=== PATIENT | female | born 1950 | race Caucasian/White ===

== ENCOUNTER 2016-07-18 09:10 | Observation (INO) | payer MEDICARE, OTHER ==
--- NOTE | ~2016-07-18 | CN ---
Consultation Report [facility] [address] [place]. [address] NAME: JOSE CORONADO : 50 STATUS : ADM IN PAT#: [id number] AGE: 65 ADM/REG DATE : 07/18/16 MR#: [id number] REPORT SERV DATE: 07/18/16 DICTATED BY: RU KNIGHT DATE: 07/18/16 REPORT STATUS : Draft TRANSCRIBED BY: MODL DATE: 07/18/16 ELECTROPHYSIOLOGY CONSULTATION DATE OF CONSULTATION: INDICATIONS: Recurrent atrial flutter. HISTORY OF PRESENT ILLNESS: Jose Coronado is a 65-year-old female who was admitted from the office today by Dr. Serrano with recurrent atrial flutter with RVR. She reports she was fairly unaware that she was out of rhythm. She had a recent KISHORE cardioversion, has been on Eliquis for about two weeks. Since then, she reports compliance with her Eliquis. She continues to smoke cigarettes. She has COPD and exertional shortness of breath. No complaints of angina. She has known coronary artery disease. No syncope or presyncope and no sense of palpitations. PAST MEDICAL HISTORY: Coronary artery disease, previous PCI, previous CAB, COPD, ongoing smoking, previous inferior NE, mixed hyperlipidemia, diabetes, MARY JANE, atrial flutter. MEDICATIONS: Listed in the [facility] form. ALLERGIES: NONE KNOWN. SOCIAL HISTORY: Ongoing smoking. FAMILY HISTORY: Reviewed. Notable for cancer, hypertension, and coronary artery disease. REVIEW OF SYSTEMS: As per the HPI. Otherwise, all other review of systems negative. PHYSICAL EXAMINATION: VITAL SIGNS: Heart rate 120 to 130 beats per minute, respiratory rate 14, the patient is afebrile, weight this morning 234 pounds. GENERAL: Appears stated age, no distress. EYES: Sclerae anicteric, no arcus senilis. MOUTH: Oral mucosa moist, lips acyanotic. NECK: Jugular venous pressure normal, no carotid bruits. LUNGS: Diffusely diminished. CARDIAC: Irregular rhythm, tachycardiac. ABDOMEN: Soft, nondistended, nontender. EXTREMITIES: Have mild edema. SKIN: Warm and dry. NEURO/PSYCH: Alert and oriented, nonfocal, mood appropriate. IMAGING: Electrocardiogram, atrial flutter. Consultation Report [facility] [address] [place]. [address] NAME: JOSE CORONADO : 50 STATUS : ADM IN PAT#: [id number] AGE: 65 ADM/REG DATE : 07/18/16 MR#: [id number] REPORT SERV DATE: 07/18/16 DICTATED BY: RU KNIGHT DATE: 07/18/16 REPORT STATUS : Draft TRANSCRIBED BY: MADINA DATE: 07/18/16 LABORATORY DATA: Pending. IMPRESSION: 1. Recurrent atrial fibrillation with rapid ventricular response. 2. Coronary artery disease, previous bypass grafting, previous PCI. 3. Obesity. 4. Chronic obstructive pulmonary disease. 5. Ongoing smoking. 6. Obstructive sleep apnea. 7. Diabetes. RECOMMENDATIONS: Discussed with the patient, options of antiarrhythmic drug versus ablation. I have discussed the pros and cons of both approaches. Addressed the rationale, logistics, and risk of EP study and ablation. Addressed risks to include but not limited to bleeding, infection, vascular complications, myocardial infarction, stroke, cardiac perforation, increased risk of vascular complications related to the patient's body habitus. The patient had breakfast this morning. She is on Eliquis and has diabetes. Her best option for the short term is amiodarone and proceeding on with a cardioversion. I would consider ablation of the patient's atrial flutter as an outpatient. This was seen to be a reasonable approach given recurrent atrial flutter and risk with a long-term amiodarone use in a patient with ongoing smoking. This was discussed with the patient. SHEFALI/MADINA Ru Knight M.D. / [id number] CC: Epifanio Serrano MD
--- NOTE | ~2016-07-18 | OP ---
Record Of Operation [facility] [address] [place]. [address] NAME: JOSE CORONADO : 50 STATUS : ADM IN PAT#: [id number] AGE: 65 ADM/REG DATE : 07/18/16 MR#: [id number] REPORT SERV DATE: 07/19/16 DICTATED BY: RU KNIGHT DATE: 07/19/16 REPORT STATUS : Draft TRANSCRIBED BY: MADIAN DATE: 07/19/16 DATE OF PROCEDURE: CARDIOVERSION REPORT INDICATIONS: Typical right atrial flutter. PROCEDURES: Elective external cardioversion. DESCRIPTION: Ms. Jose Coronado was brought to the Anesthesia Unit at [facility] in a fasting state. The patient was properly identified. The patient was anesthetized with propofol via anesthesia services, which she deemed to be hemodynamically stable and adequately sedated. A single 100 joule biphasic energy delivery was performed which successfully cardioverted the patient to sinus rhythm. She reports absolute compliance with her Eliquis prior to the procedure. IMPRESSION: Successful cardioversion of atrial flutter to sinus rhythm. RECOMMENDATIONS: Continue amiodarone at the present time. Followup will be arranged in Electrophysiology Clinic for discussion of possible ablation of the patient's atrial flutter process. SHEFALI/MADINA Ru Knight M.D. / [id number] CC: Epifanio Serrano MD
--- NOTE | ~2016-07-18 | HP ---
History And Physical [facility] [address] [place]. [address] NAME: JOSE CORONADO : 50 STATUS : ADM IN PAT#: [id number] AGE: 65 ADM/REG DATE : 07/18/16 MR#: [id number] REPORT SERV DATE: 07/19/16 DICTATED BY: CB SERRANO DATE: 07/18/16 REPORT STATUS : Draft TRANSCRIBED BY: MODL DATE: 07/18/16 DATE OF ADMISSION: 07/18/2016 CARDIOLOGY ADMISSION HISTORY AND PHYSICAL IDENTIFYING DATA: The patient is a 65-year-old woman with multiple medical problems, including recently diagnosed atrial fibrillation/atrial flutter and small-cell lung cancer. CHIEF COMPLAINT: The patient was admitted directly from Cardiology Clinic with atrial flutter with rapid ventricular response and fatigue and dyspnea. HISTORY OF PRESENT ILLNESS: Ms Coronado is a 65-year-old woman with multiple medical problems and history of poor medical compliance. She has advanced COPD and continues to smoke cigarettes. She has recently diagnosed small-cell lung cancer. The patient is undergoing radiation therapy for this, with no chemotherapy or surgery contemplated. The patient was recently admitted to [facility] with atrial fibrillation. She underwent DC cardioversion and was started on Eliquis. The patient was discharged to home. She presented today to clinic for followup. The patient was complaining of fatigue and dyspnea. She was found to be in atrial flutter with a rapid ventricular response and a ventricular rate of approximately 145 beats per minute. The patient was directly admitted for consideration of EP consult for ablation. Unfortunately, the patient had eaten and ablation could not be scheduled in a practical way. The patient has therefore been started on Cardizem and will be scheduled for DC cardioversion tomorrow morning. PAST MEDICAL HISTORY: 1. Coronary artery disease, status post coronary artery bypass grafting surgery in the year 2009 with multiple subsequent percutaneous coronary interventions. 2. Insulin-dependent type 2 diabetes. 3. Hypertension. 4. Dyslipidemia. 5. Tobacco abuse. 6. Severe chronic obstructive pulmonary disease. 7. Morbid obesity. 8. Untreated obstructive sleep apnea. 9. Gastroesophageal reflux disease. 10.Chronic pain syndrome. PAST SURGICAL HISTORY: 1. CABG, as noted above. 2. Multiple PCIs. 3. Cholecystectomy. 4. Appendectomy. 5. Hysterectomy. FAMILY HISTORY: The patient's father at age 67 with complications of liver disease and History And Physical [facility] [address] [place]. [address] NAME: JOSE CORONADO : 50 STATUS : ADM IN PAT#: [id number] AGE: 65 ADM/REG DATE : 07/18/16 MR#: [id number] REPORT SERV DATE: 07/19/16 DICTATED BY: CB SERRANO DATE: 07/18/16 REPORT STATUS : Draft TRANSCRIBED BY: MADINA DATE: 07/18/16 heart disease. Her mother suffered myocardial infarction at age 66. There is no family history of sudden cardiac . SOCIAL HISTORY: The patient has a long history of tobacco abuse. She continues to smoke about half a pack of cigarettes per day. She has no known history of illicit drug use or alcohol abuse. ALLERGIES: THE PATIENT HAS NO KNOWN MEDICATION ALLERGIES. HOME MEDICATIONS: 1. Albuterol MDA one puff four times daily as needed. 2. Eliquis 5 mg p.o. twice daily. 3. Aspirin 81 mg daily. 4. Atorvastatin 40 mg p.o. at bedtime. 5. Symbicort 160 mcg/4.5 mcg two puffs inhaled twice daily. 6. Docusate sodium 200 mg p.o. daily. 7. Lasix 40 mg p.o. daily. 8. Neurontin 100 mg p.o. q.6 hours. 9. Insulin glargine 40 units p.o. at bedtime. 10.Ativan 1 mg p.o. twice daily as needed for anxiety. 11.Metoprolol tartrate 25 mg p.o. twice daily. 12.Nicotine patches 21 mg topical daily. 13.Oxycodone 20 mg p.o. q.6 hours as needed for pain. 14.Potassium chloride 10 mEq p.o. daily. 15.Mirapex 0.125 mg p.o. q.h.s. 16.Phenergan 25 mg p.o. twice daily. 17.Ranitidine 300 mg p.o. twice daily. 18.Ranexa 500 mg p.o. twice daily. 19.Tiotropium one capsule inhaled daily. 20.Chantix 1 mg p.o. twice daily. REVIEW OF SYSTEMS: A complete 12-system review was performed. This is noncontributory except for the pertinent positives and negatives noted in the history of present illness above. PHYSICAL EXAMINATION: VITAL SIGNS: Temperature is 98.9 degrees Fahrenheit, blood pressure is 120/60 mmHg, heart rate on admission is 145 beats per minute, but after institution of diltiazem and p.o. amiodarone has decreased to approximately 110 to 120 beats per minute, respirations 18, oxygen saturation is 95% on a 2 L nasal cannula. GENERAL: The patient is a chronically ill, but morbidly obese appearing white woman, who is very mildly tachypneic, but otherwise in no acute distress. The patient is on with a portable oxygen concentrator. EYES: PERRL, EOMI, clear conjunctiva. HEAD/MNT: NCAT with moist mucous membranes and grossly normal hard and soft palate. NECK: Supple with no obvious thyromegaly or lymphadenopathy CARDIOVASCULAR: There is a regular rhythm with a tachycardia noted on initial examination. History And Physical [address] [address] NAME: JOSE CORONADO : 50 STATUS : ADM IN [facility]#: [id number] AGE: 65 ADM/REG DATE : 07/18/16 MR#: [id number] REPORT SERV DATE: 07/19/16 DICTATED BY: CB SERRANO DATE: 07/18/16 REPORT STATUS : Draft TRANSCRIBED BY: MADINA DATE: 07/18/16 There is a normal S1 and a physiologically split second heart sound. No obvious murmurs or rubs are noted. The jugular venous pressure appears to be mildly elevated at 8 cm. PULMONARY: Globally decreased air movement with inspiratory and expiratory wheezing. ABDOMINAL: Soft, non-tender, non-distended with no hepatosplenomegaly noted. EXTREMITIES: There is chronic 2+ edema. MUSCULOSKELETAL: Grossly normal strength and range of motion in all extremities INTEGUMENTARY: Skin appears intact with no bruises, wounds or active lesions noted NEURO/PSYC: Alert and oriented x3, with no dysarthria, facial droop or lateralizing weakness noted. STUDIES: 12-lead EKG: The 12-lead EKG shows atrial flutter with a rapid ventricular response and secondary ST/T-wave abnormalities. There is an RSR prime pattern noted. LABORATORY DATA: The patient's blood sugar is elevated at 338. Further labs are pending at this time. ASSESSMENT AND PLAN: Atrial flutter with rapid ventricular response: The patient has been started on amiodarone and a Cardizem drip for rate control. She will be scheduled for cardioversion tomorrow. The patient underwent recent transesophageal echocardiography revealing no intracardiac thrombus. She has been on Eliquis 5 mg p.o. twice daily since that time. I do not feel the patient should require repeat transesophageal echocardiography, only DC cardioversion. She will continue on amiodarone. The patient will have follow up with the EP service following discharge to consider ablation for refractory dysrhythmia. JCH/LAURENL Cb Serrano MD / [id number] CC: MD VARINDER Uriarte ROBERT E
[~2016-07-18 09:10] MED LIST: ALBUTEROL0.63 MG/3 INH; ASAB PO; ATV1 PO; BRILINTA90 MG PO; CHANTIX1 PO; COMBIVENT INH; CRESTOR20 MG PO; DSS PO; DUONEB INH; ELIQUIS 5 MG TAB5 MG PO; FISH-EPA1000 MG PO; FLEX PO; HABIT21 TOP; KAON-CL-1010 MEQ PO; KLOR-CON M1010 MEQ PO; L40 PO; LANTUS SC; LEVAQUIN750 MG PO; LIPITOR40 PO; LOP25 PO; MIRAPEX125 PO; NEUR100 PO; OXYIR5 MG PO; PERCOCET1 TA4 PO; PLAVIX PO; PR25 PO; PROVHFA INH; RAN500 PO; RANITIDINE300 MG PO; ROXICODONE15 MG PO; SPIRIVA INH; STERAP512; SYMBICORT 160/41 INH INH; ZANTAC300 MG PO
[2016-07-19 07:08] LABS: BASOPHILS 0.1 %; BASOPHILS ABSOLUTE 0.01 10/3/uL (0.0-0.16); EOSINOPHILS 0.9 %; EOSINOPHILS ABSOLUTE 0.08 10/3/uL (0.0-0.53); HEMATOCRIT 48.1 % (36.0-48.0); HEMOGLOBIN 14.7 g/dL (12.0-16.0); IMMATURE GRANULOCYTES 0.2 %; IMMATURE GRANULOCYTES ABSOLUTE 0.02 10/3/uL (0.0-0.11); LYMPHOCYTES 20.7 %; LYMPHOCYTES ABSOLUTE 1.88 10/3/uL (0.67-4.30); MEAN CORPUS HGB CONC 30.6 g/dL (32.0-36.0); MEAN CORPUSCULAR HEMOGLOB 27.7 pg (26.0-34.0); MEAN CORPUSCULAR VOLUME 90.8 fL (80-100); MEAN PLATELET VOLUME 11.4 fL (9.2-13.0); MONOCYTES 8.7 %; MONOCYTES ABSOLUTE 0.79 10/3/uL (0.21-1.20); NEUTROPHILS 69.4 %; NEUTROPHILS ABSOLUTE 6.29 10/3/uL (2.02-8.40); PLATELET COUNT 151 10/3/uL (150-400); RBC DISTRIBUTION WIDTH 16.9 % (12.0-16.0); WHITE BLOOD CELLS 9.1 10/3/uL (4.5-10.5)
[2016-07-19 07:10] LABS: MANUAL DIFF NO %
[2016-07-19 07:14] LABS: INTERNATIONAL NORMAL RATI 1.3 UNITS (-); PROTIME (NOT ORD) 15.6 SEC (12.0-14.5)
[2016-07-19 07:24] LABS: BUN (BLOOD UREA NITROGEN) 18 MG/DL (6-23); CALCIUM, SERUM 8.3 MG/DL (8.5-10.4); CHLORIDE, SERUM 99 MMOL/L (96-112); CREATININE 0.62 MG/DL (0.55-1.02); GFR AFRICAN AMERICAN 110 ML/MIN (>=60); GFR NON AFRICAN AMERICAN 95 ML/MIN (>=60); GLUCOSE, SERUM 261 MG/DL (60-99); POTASSIUM, SERUM 3.8 MMOL/L (3.5-5.3); SODIUM, SERUM 141 MMOL/L (135-148)
[2016-07-19 07:27] LABS: CO2 (CARBON DIOXIDE) 34 MMOL/L (24-34)
[2016-07-19] MEDS ORDERED: CORDARONE PO (09:30)
[2016-09-06] MEDS ORDERED: ALBUTEROL0.63 MG/3 INH (14:48)
== END 2016-07-19 12:21 | disposition home or self-care (01) ==
LOC: 5NO 09:10
PROVIDERS: Internal Medicine Cardiovascular Disease
PROC: 5A2204Z Restoration of Cardiac Rhythm, Single (ICD-10-PCS; principal; 2016-07-18)
DX: I48.3 Typical atrial flutter (principal); I25.10 Atherosclerotic heart disease of native coronary artery without angina pectoris; J44.9 Chronic obstructive pulmonary disease, unspecified; I25.2 Old myocardial infarction; E78.2 Mixed hyperlipidemia; E11.9 Type 2 diabetes mellitus without complications; G47.33 Obstructive sleep apnea (adult) (pediatric); M06.9 Rheumatoid arthritis, unspecified; I10 Essential (primary) hypertension; E66.01 Morbid (severe) obesity due to excess calories; G89.29 Other chronic pain; Z95.1 Presence of aortocoronary bypass graft; Z79.899 Other long term (current) drug therapy; Z79.82 Long term (current) use of aspirin; Z90.49 Acquired absence of other specified parts of digestive tract; Z90.710 Acquired absence of both cervix and uterus
CPT/HCPCS: 80048; 82962; 83735; 85025; 85610; 92960; 93005; 94640; 96374; 96376; A9270-GY; G0378